=== PATIENT | male | born 1940 | race Caucasian/White ===

== ENCOUNTER 2017-03-01 08:43 | Observation (INO) | payer MEDICARE, OTHER ==
[~2017-03-01] VITALS: Ht 172.7 cm; Wt 67.6 kg
--- NOTE | 2017-03-01 09:05 | RAD ---
CT head without contrast History: .Right arm numbness, code stroke Comparison: None. Procedure: Axial images are obtained of the head from the skull base through the vertex without IV contrast. Findings: Mild bilateral periventricular white matter hypodensities likely chronic small vessel ischemic disease. The ventricles and sulci are normal for the patient's age. No mass-effect, intracranial mass, midline shift, hemorrhage or obvious acute infarction is identified. Basilar cisterns are patent. Bone windows demonstrate no significant calvarial abnormality. The visualized paranasal sinuses appear clear. Impression: 1. No acute intracranial process. Report was called to [facility] ER at time of dictation. PQRS Compliance Statement: One or more of the following individualized dose reduction techniques were utilized for this examination: 1. Automated exposure control 2. Adjustment of the mA and/or kV according to patient size 3. Use of iterative reconstruction technique
--- NOTE | 2017-03-01 09:26 | RAD ---
Examination: Single frontal view the chest History: History of right arm numbness, face numbness Comparison: None available Findings FINDINGS: The cardiac silhouette is unremarkable. The lungs are clear bilaterally. The costophrenic sulci are clear and well demarcated. IMPRESSION: No radiographic evidence of an acute cardiopulmonary process.
[2017-03-01 09:27] LABS: BASO # 0.1 x10^3/uL (0.0-0.2); BASO % 1 % (0-3); EOS # 0.5 x10^3/uL (0.0-0.7); EOS % 6 % (0-3); HEMATOCRIT 51.4 % (39.0-53.0); HEMOGLOBIN 17.9 g/dL (13.0-17.5); LYMPH % 22 % (24-48); MEAN CORPUSCULAR HEMOGLOBIN 32 pg (25-35); MEAN CORPUSCULAR HGB CONC 35 g/dL (31-37); MEAN CORPUSCULAR VOLUME 91 fL (79-100); MONO # 0.9 x10^3/uL (0.0-1.1); MONO % 10 % (0-9); NEUT # 5.7 x10^3uL (1.8-7.7); NEUT % 62 % (31-73); PLATELET COUNT 262 x10^3/uL (140-400); RED BLOOD COUNT 5.63 x10^6/uL (4.30-5.70); RED CELL DISTRIBUTION WIDTH 13.6 % (11.5-14.5); WHITE BLOOD COUNT 9.1 x10^3/uL (4.0-11.0)
[2017-03-01 09:29] LABS: ALBUMIN 3.9 g/dL (3.4-5.0); ALBUMIN/GLOBULIN RATIO 0.9 (1.0-1.7); C REACTIVE PROTEIN 4.4 mg/L (0-3.3); CALCIUM 9.3 mg/dL (8.5-10.1); CREATININE 0.9 mg/dL (0.7-1.3); GFR 82.3; POTASSIUM 3.9 mmol/L (3.5-5.1); TOTAL BILIRUBIN 0.5 mg/dL (0.2-1.0); TOTAL PROTEIN 8.1 g/dL (6.4-8.2)
--- NOTE | 2017-03-01 09:30 | PHYS DOC ---
General Chief Complaint: WEAKNESS/GENERALIZED Stated Complaint: POSSIBLE STROKE SYMPTOMS Time Seen by MD: 08:46 Source: patient Exam Limitations: no limitations Problems: History of Present Illness Initial Comments Pt is 76/M to ED for possible stroke. Pt states that he woke this am about 0600 and felt normal/well. Around 0630 or 0700 pt tried to read the newspaper but found that he could not remember one word to the next or really comprehend what he saw. He reread the same sentences and could not recall/understand them. He then tried to recall names of all his grandchildren in his head and could not think of one of their names. He said this is when he knew things were not right. He went to the restroom but had difficulty flipping the light switch on with his right hand due to RUE numbness/perceived weakness. Along with right arm weak/numb he also at this time felt right facial weakness/numbness but no droop noted in bathroom mirror. His woke shortly thereafter, she found pt sitting in his chair initially unable to find words or form sentences to speak with her. They initially planned to wait for a clinic to open but decided to come to ED. On ED arrival pt denies any focal weakness or GARCÍA, still with right arm/face dull ache/ tingling. No new or progressive symptoms. Pt denies any headache/cp/sob. 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 Timing/Duration: 1-3 hours Severity: severe Modifying Factors: worse with movement, improves with rest Associated Symptoms: weakness, other Allergies: Coded Allergies: No Known Drug Allergies (Unverified , 03/01/17) Past Medical History Medical History: other (COPD, HTN, GERD) Surgical History: noncontributory Social History Smoker: less than 1 pack/day Alcohol: none Drugs: none Review of Systems Constitutional: denies chills, denies diaphoresis, denies fever, malaise EENTM: denies eye pain, denies blurred vision, denies double vision, denies ear pain, denies ear discharge, denies nose pain, denies nose congestion, denies throat pain, denies mouth pain Respiratory: denies cough, denies shortness of breath, denies wheezing Cardiovascular: denies chest pain, denies palpitations, denies syncope Gastrointestinal: denies abdominal pain, denies diarrhea, denies nausea, denies vomiting Genitourinary: denies dysuria, denies frequency, denies hematuria Musculoskeletal: see HPI, denies back pain, denies joint swelling, denies neck pain Psychiatric/Neurological: see HPI, denies headache Physical Exam General Appearance: WD/WN, no apparent distress Eyes: bilateral eye normal inspection, bilateral eye PERRL, bilateral eye EOMI Ear, Nose, Throat: hearing grossly normal, normal ENT inspection, normal pharynx Neck: non-tender, supple Respiratory: normal breath sounds, no respiratory distress Cardiovascular: normal peripheral pulses, regular rate, rhythm Gastrointestinal: non tender, soft Back: no CVA tenderness, no vertebral tenderness Extremities: non-tender, normal inspection (2+ pitting LE edema) 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 PHYSICIAN: GAEL COLLINS DO REASON: cva PROCEDURE: CT CODE STROKE HEAD WO CT head without contrast History: .Right arm numbness, code stroke Comparison: None. Procedure: Axial images are obtained of the head from the skull base through the vertex without IV contrast. Findings: Mild bilateral periventricular white matter hypodensities likely chronic small vessel ischemic disease. The ventricles and sulci are normal for the patient's age. No mass-effect, intracranial mass, midline shift, hemorrhage or obvious acute infarction is identified. Basilar cisterns are patent. Bone windows demonstrate no significant calvarial abnormality. The visualized paranasal sinuses appear clear. Impression: 1. No acute intracranial process. Report was called to [facility] ER at time of dictation. PQRS Compliance Statement: One or more of the following individualized dose reduction techniques were utilized for this examination: 1. Automated exposure control 2. Adjustment of the mA and/or kV according to patient size 3. Use of iterative reconstruction technique DICTATED AND SIGNED BY: NOREEN NAVA MD DATE: 03/01/17 0859 CC: HEATHER EDWARDS; GAEL COLLINS DO ~ d-dimer 0.46, Na 128, UA 100glu 1022: I discussed pt with Dr Cabrales Neurology. He also feels pt TIA, recommends [facility] admission, lovenox dvt prophylaxis, ASA, echo/carotids/LE dopplers. Discussed with Dr Miner who accepts pt for admission. Departure Disposition: 09 ADMITTED INPATIENT Diagnosis: TIA, hyponatremia, tobaccoism, glucosuria Condition: STABLE GAEL COLLINS DO March 01, 2017 09:30
--- NOTE | 2017-03-01 09:32 | EKG ---
[address] [address] Test Date: 2017-03-01 Test Time: 09:00:10 Pat Name: RYAN KELLEY Department: Room: Gender: M Customer Success Intern: ANNI : 1940 Requested By: GAEL COLLINS Order Number: [id number] Reading MD: Navi Anne Measurements Intervals [place] Rate: 71 P: 60 MA: 150 QRS: 80 QRSD: 88 T: 77 QT: 372 QTc: 404 Interpretive Statements SINUS RHYTHM Electronically Signed On 03-03-2017 14:57:31 CDT by Navi Anne
[2017-03-01 10:08] LABS: AMORPHOUS SEDIMENT,UR PRESENT /HPF; BACTERIA,URINE 0 /HPF (0-FEW); BILIRUBIN,URINE NEG (NEG); CLARITY,URINE HAZY; COLOR,URINE STRAW; GLUCOSE,URINE 100 mg/dL (NEG); NITRITE,URINE NEG (NEG); RBC,URINE RARE /HPF (0-2); SQUAMOUS EPITHELIAL CELL,UR OCC /LPF; UROBILINOGEN,URINE 0.2 mg/dL (0.2 mg/dL); WBC,URINE RARE /HPF (0-4)
[2017-03-01 10:10] LABS: AMPHETAMINE/METHAMPHETAMINE NEG (NEG); BARBITURATES NEG (NEG); BENZODIAZEPINES NEG (NEG); CANNABINOIDS NEG (NEG); COCAINE NEG (NEG); METHADONE NEG (NEG); OPIATES NEG (NEG); PHENCYCLIDINE NEG (NEG)
[2017-03-01] MEDS ORDERED: ACETAMINOPHEN 325 MG TABLET PO PRN (11:15)
[2017-03-01] MEDS: IPRATRPIUM/ALBUTEROL 0.5/2.5MG 3 ML NEBU. NEB SCH ×3 (11:22→20:00)
[2017-03-01] MEDS ORDERED: IV NORMAL SALINE 1,000ML 1,000 ML IV SCH (11:30)
[2017-03-01] MEDS ORDERED: ONDANSETRON PF 4 MG/2 ML VIAL. IV PRN (11:30)
[2017-03-01 14:13] VITALS: BP 137/70
[2017-03-01] MEDS ORDERED: ENOXAPARIN 40 MG/0.4 ML DISP.SYRIN. SQ SCH (14:15)
[2017-03-01] MEDS ORDERED: AMLO10TA2 PO (14:32)
[2017-03-01] MEDS ORDERED: FAMO40TA4 PO (14:32)
[2017-03-01] MEDS ORDERED: ENAL20TA PO (14:32)
[2017-03-01] MEDS ORDERED: METO50TA10 PO (14:32)
[2017-03-01] MEDS: ASPIRIN 325 MG TABLET PO SCH (14:34)
--- NOTE | 2017-03-01 15:58 | PDOC1 ---
History of Present Illness Reason for Visit: Stroke History of Present Illness Pt had onset of confusion about 630 this morning. He says he couldn't find the right words to say what he wanted. Then, while he was shaving, the right arm and right face went numb. He was even unable to turn the doorknob. He denied GARCÍA, SOA, chest pain, dizziness, blurry vision, or any other symptoms. He had his take him to the ER, and by the time he arrived there, his symptoms had resolved. Total time was about 1 hour per pt and his . He reports never having had those symptoms before. He is a smoker, but his only hospitalization was many years ago when "they thought I had a heart attack Chief Complaint: WEAKNESS/GENERALIZED Allergies: Coded Allergies: No Known Drug Allergies (Unverified , 03/01/17) Past Medical History Cardiac: HTN Pulmonary: COPD Past Surgical History: No pertinent history Family History: No pertinent hx Past Social History Smoke: <1 pack per day Alcohol: none Drugs: None Lives: with Family Review of Systems Review Of Systems Fourteen system , review of systems has been reviewed. See HPI for pertinent positives and negative responses, other samuel all other systems are negative, non pertinent or non contributory Allergies: Coded Allergies: No Known Drug Allergies (Unverified , 03/01/17) Medications Current Medications Ondansetron HCl (Zofran) 4 mg PRN Q4HRS PRN IV NAUSEA/VOMITING; Start 03/01/17 at 11:30; Stop 03/02/17 at 11:29 Sodium Chloride 1,000 ml @ 120 mls/hr Q8H20M IV Last administered on 12:47; Start 03/01/17 at 11:30; Stop 03/01/17 at 15:13; Status DC Acetaminophen (Tylenol) 650 mg PRN Q4HRS PRN PO FEVER; Start 03/01/17 at 11:15 ; Stop 03/02/17 at 11:14 Albuterol/ Ipratropium (Duoneb) 3 ml RTQID NEB Last administered on 03/01/17 11:22; Start 03/01/17 at 12:00; Stop 03/02/17 at 11:59 Enoxaparin Sodium (Lovenox) 40 mg Q24H SQ ; Start 03/01/17 at 14:15; Stop at 15:13; Status DC Aspirin (Jack Aspirin) 325 mg DAILYWBKFT PO Last administered on 03/01/17t 14: 34; Start 03/01/17 at 13:45 Nicotine (Nicoderm Cq 14mg) 1 patch DAILY TD ; Start 03/02/17 at 09:00; Status UNV Active Scripts Active Reported Famotidine 40 Mg Tablet 1 Tab PO DAILYWSUP Enalapril Maleate 20 Mg Tablet 1 Tab PO DAILY Amlodipine Besylate 10 Mg Tablet 1 Tab PO DAILY Metoprolol Succinate ( Xl ) (Metoprolol Succinate) 50 Mg Tab.er.24h 1 Tab PO HS Exam Vital Signs Vital Signs Date Time Temp Pulse Resp B/P (MAP) Pulse Ox O2 Delivery O2 Flow Rate FiO2 03/01/17 14:13 97.4 84 22 137/70 (92) 94 Room Air General Appearance: Alert, Oriented X3, Cooperative, No acute distress HEENT: Atraumatic, PERRLA, EOMI, Mucous membr. moist/pink, Other (Neck supple, full ROM, no JVD, no LAD) Respiratory: Clear to auscultation, Normal air movement Abdominal: Normal bowel sounds, Soft, No tenderness, No hepatospenomegaly, No masses Extremities: No edema, Normal pulses, No tenderness/swelling Skin: No rashes, No breakdown Neuro: Normal speech, Strength at 5/5 X4 ext, Normal tone, Sensation intact, Cranial nerves 3-12 NL, Reflexes 2+ Psych/Mental Status: Mental status NL, Mood NL Assessment/Plan Assessment/Plan 1. TIA vs CVA: Sx's resolved in 1 hour. Cont neurochecks. Carotids and echo. Neuro consult. Telemetry. Aspirin daily. Consider d/c in AM if tests negative and no recurrence of symptoms. Could consider MRI/MRA as outpatient. 2. COPD: Stable, pt advised to stop smoking. 3. Tobaccoism: Nicotine patch placed. 4. HTN: Stable. 5. DVT proph: Pt low-risk, possibly 24 hour stay. COnsider Lovenox if staying longer. COURSE Allergies Coded Allergies Type Severity Reaction Last Updated Verified No Known Drug Allergies 03/01/17 No Laboratory Tests Test 03/01/17 08:55 03/01/17 09:45 White Blood Count 9.1 x10^3/uL (4.0-11.0) Red Blood Count 5.63 x10^6/uL (4.30-5.70) Hemoglobin 17.9 g/dL (13.0-17.5) Hematocrit 51.4 % (39.0-53.0) Mean Corpuscular Volume 91 fL (79-100) Mean Corpuscular Hemoglobin 32 pg (25-35) Mean Corpuscular Hemoglobin Concent 35 g/dL (31-37) Red Cell Distribution Width 13.6 % (11.5-14.5) Platelet Count 262 x10^3/uL (140-400) Neutrophils (%) (Auto) 62 % (31-73) Lymphocytes (%) (Auto) 22 % (24-48) Monocytes (%) (Auto) 10 % (0-9) Eosinophils (%) (Auto) 6 % (0-3) Basophils (%) (Auto) 1 % (0-3) Neutrophils # (Auto) 5.7 x10^3uL (1.8-7.7) Lymphocytes # (Auto) 2.0 x10^3/uL (1.0-4.8) Monocytes # (Auto) 0.9 x10^3/uL (0.0-1.1) Eosinophils # (Auto) 0.5 x10^3/uL (0.0-0.7) Basophils # (Auto) 0.1 x10^3/uL (0.0-0.2) Prothrombin Time 10.2 SEC (9.4-11.4) Prothromb Time International Ratio 1.0 (0.9-1.1) Activated Partial Thromboplast Time 28 SEC (23-33) D-Dimer (Connie) 0.46 mg/L (0.00-0.50) Sodium Level 128 mmol/L (136-145) Potassium Level 3.9 mmol/L (3.5-5.1) Chloride Level 89 mmol/L (98-107) Carbon Dioxide Level 31 mmol/L (21-32) Anion Gap 8 (6-14) Blood Urea Nitrogen 13 mg/dL (8-26) Creatinine 0.9 mg/dL (0.7-1.3) Estimated GFR (Cockcroft-Gault) 82.3 BUN/Creatinine Ratio 14 (6-20) Glucose Level 107 mg/dL (70-99) Lactic Acid Level 0.9 mmol/L (0.4-2.0) Calcium Level 9.3 mg/dL (8.5-10.1) Total Bilirubin 0.5 mg/dL (0.2-1.0) Aspartate Amino Transf (AST/SGOT) 25 U/L (15-37) Alanine Aminotransferase (ALT/SGPT) 27 U/L (16-63) Alkaline Phosphatase 95 U/L (46-116) Troponin I Quantitative < 0.017 ng/mL (0-0.055) C-Reactive Protein 4.4 mg/L (0-3.3) Total Protein 8.1 g/dL (6.4-8.2) Albumin 3.9 g/dL (3.4-5.0) Albumin/Globulin Ratio 0.9 (1.0-1.7) Urine Collection Type Unknown Urine Color Straw Urine Clarity Hazy Urine pH 7.5 Urine Specific [place] 1.020 Urine Protein >100 mg/dl (NEG-TRACE) Urine Glucose (UA) 100 mg/dL (NEG) Urine Ketones (Stick) Neg mg/dL (NEG) Urine Blood Neg (NEG) Urine Nitrite Neg (NEG) Urine Bilirubin Neg (NEG) Urine Urobilinogen Dipstick 0.2 mg/dL (0.2 mg/dL) Urine Leukocyte Esterase Neg (NEG) Urine RBC Rare /HPF (0-2) Urine WBC Rare /HPF (0-4) Urine Squamous Epithelial Cells Occ /LPF Urine Amorphous Sediment Present /HPF Urine Bacteria 0 /HPF (0-FEW) Urine Mucus Slight /LPF Urine Opiates Screen Neg (NEG) Urine Methadone Screen Neg (NEG) Urine Barbiturates Neg (NEG) Urine Phencyclidine Screen Neg (NEG) Urine Amphetamine/Methamphetamine Neg (NEG) Urine Benzodiazepines Screen Neg (NEG) Urine Cocaine Screen Neg (NEG) Urine Cannabinoids Screen Neg (NEG) Urine Ethyl Alcohol Neg (NEG) Current Medications Medications (Trade) Dose Ordered Sig/Gamaliel Route PRN Reason Start Time Stop Time Status Last Admin Dose Admin Ondansetron HCl (Zofran) 4 mg PRN Q4HRS PRN IV NAUSEA/VOMITING 03/01/17 11:30 03/02/17 11:29 Sodium Chloride 1,000 ml @ 120 mls/hr Q8H20M IV 03/01/17 11:30 03/01/17 15:13 DC 03/01/17 12:47 Acetaminophen (Tylenol) 650 mg PRN Q4HRS PRN PO FEVER 03/01/17 11:15 03/02/17 11:14 Albuterol/ Ipratropium (Duoneb) 3 ml RTQID NEB 03/01/17 12:00 03/02/17 11:59 03/01/17 11:22 Enoxaparin Sodium (Lovenox) 40 mg Q24H SQ 03/01/17 14:15 03/01/17 15:13 DC Aspirin (Jack Aspirin) 325 mg DAILYWBKFT PO 03/01/17 13:45 03/01/17 14:34 Nicotine (Nicoderm Cq 14mg) 1 patch DAILY TD 03/02/17 09:00 UNV Vital Signs Date Time Temp Pulse Resp B/P (MAP) Pulse Ox O2 Delivery O2 Flow Rate FiO2 03/01/17 14:13 97.4 84 22 137/70 (92) [address] head: No acute intracranial abnormality. RIKI TATE MD March 01, 2017 15:58
[2017-03-01] MEDS: FAMOTIDINE 20 MG TABLET PO SCH (16:52)
[2017-03-01] MEDS: NICOTINE 14MG PATCH. TD SCH (17:17)
--- NOTE | 2017-03-01 17:22 | ACF ---
Admission Criteria Forms TRANSIENT ISCHEMIC ATTACK (TIA) Clinical Indications for Admission to Inpatient Care (Place 'X' for any and all applicable criteria): Admission is indicated for ANY ONE of the following(1)(2)(3)(4)(5): [ ]I. Immediate inpatient procedure is needed (eg, endarterectomy). [X]II. Inpatient admission required rather than observation care (Also use Transient Ischemic Attack (TIA): Observation Care Criteria as appropriate) because of ANY ONE of the following: [ ]a) Focal neurologic signs or symptoms persist or recurring [ ]b) Cardiac arrhythmias of immediate concern [ ]c) Clinically significant cardiac disorder identified that requires inpatient care (eg, severe valvular disease, atrial myxoma, cardiomyopathy) [ ]d) Hypertension requiring inpatient treatment [ ]e) Parenteral anticoagulation required (eg, alternative forms of anticoagulation not appropriate or not feasible) as indicated by ALL of the following(13): [ ]i) Temporary subtherapeutic anticoagulation unacceptable because of high risk of short-term venous or arterial thromboembolism due to ANY ONE of the following(14)(15)(16): [ ]1) Atrial fibrillation suspected as etiology of TIA(17)(18)(19)(20)(21) [ ]2) Venous thromboembolism within past 12 months [ ]3) Underlying malignancy [ ]4) Patient with mechanical cardiac valve(22)( 23) [ ]5) Underlying hypercoagulable state (eg, protein C or protein S deficiency antithrombin deficiency, antiphospholipid antibodies) [ ]6) Patient at temporary high risk of thromboembolism (eg, status post orthopedic surgery) [ ]ii) Contraindications to outpatient use of "bridging" agent or alternative oral anticoagulant[B] as indicated by ALL of the following: [ ]1) Contraindication to outpatient use of low- molecular-weight heparin as "bridging" agent as indicated by ANY ONE of the following(15): [ ]A. Documented current or history of heparin-induced thrombocytopenia(24) [ ]B. Severe thrombocytopenia (eg, platelet count less than 50,000/mm3 (41e176/L) [ ]C. Documented allergy to heparin, low- molecular-weight heparin, or pork products [ ]D. Renal failure (creatinine clearance less than 30 mL/min/1.73m2 (0.50mL/sec/1.73m2) or on dialysis) [ ]E. Inability to manage self-injection ( eg, by patient, caregiver, or visiting nurse) [ ]2) Contraindication to outpatient use of fondaparinux as "bridging" agent as indicated by ANY ONE of the following(25)(26 )(27)(28): [ ]A. Severe thrombocytopenia (eg, platelet count less than 50,000/mm3 (50 x109/L)) [ ]B.Hypersensitivity to fondaparinux, related drugs, or product components [ ]C.Renal failure (creatinine clearance less than 30 mL/min/1.73m2 (0.50mL/sec/1.73m2) or on dialysis) [ ]D.Inability to manage self-injection ( eg, by patient, caregiver, or visiting nurse [ ]3. Oral direct thrombin inhibitor (eg, dabigatran) or oral coagulation factor Xa inhibitor (eg, rivaroxaban, apixaban) not appropriate as oral anticoagulation (eg, indication not appropriate) or contraindicated (eg, hypersensitivity, creatinine clearance less than 15 mL/min/1.73m2 ( 0.25 mL/sec/1.73m2) or on dialysis). [ ]f) Continuous IV infusion of anticoagulant, platelet inhibitor, vasoactive or antiarrhythmia(18)(19) [X]g) Other condition, treatment, or monitoring requiring inpatient admission [ ]III. Contraindications and/or Inappropriate clinical situations for Observational Care in patients with Transient Ischemic Attack (TIA), when ANY ONE of the following is required: [ ]a) Patient with persistent or severe neurological deficit 24 [ ]b) Patient with acute CVA or other identified pathology should be admitted to inpatient for further care 25 [ ]IV. General contraindications and/or Inappropriate clinical situations for Observational Care in patients with Transient Ischemic Attack (TIA), when ANY ONE of the following is required: [ ]a) Prediction of prolongation of LOS based on ANY ONE of the following may be considered as a contraindication for observational care 2, 3, 4, 5, 6, 7, 8, 9, 10, 11 [ ]i) Age > 65 yrs. [ ]ii) Patient arriving by ambulance [ ]iii) Patient with high acuity [ ]iv) Patient requiring vital sign monitoring [ ]v) Patient on IV medication [ ]b) Systolic blood pressures 180mmHg 3,12 [ ]c) Patient with altered mental status including delirium and other alteration of consciousness, (3) [ ]d) Patient whose discharge disposition will be to a longterm home or rehabilitation home should not be managed in Emergency Department Observation Unit. CMS rule requires 3 days hospital stay before such placement.3,13 [ ]e) Patient with failure to thrive due to broad array of etiologies 3,16,17 [ ]f) Inability to ambulate 3,14 Extended stay beyond goal length of stay may be needed for(4)(30)(32): [ ]a) Parenteral anticoagulation required [ ]b) Dangerous arrhythmia [ ]c) Cardiac valvular disorder, atrial myxoma, cardiomyopathy [ ]d) Uncontrolled severe hypertension [ ]e) Severe carotid stenosis [ ]f) Active comorbidities (eg, heart failure) [ ]g) Extracranial vertebrobasilar disease(29) [ ]h) Clinical evolution of TIA into cerebrovascular accident (stroke) The original [employer] content created by [employer] has been revised. The portions of thecontent which have been revised are identified through the use of italic text or in bold, and [email or web address] has neither reviewed nor approved the modified material. All other unmodified content is copyright [email or web address]. Please see references footnoted in the original [employer] edition 2016 Admission Criteria Met?: Yes GUZMAN MIRANDA March 01, 2017 17:22
[2017-03-01 19:18] VITALS: BP 136/72
[2017-03-01] MEDS ORDERED: METOPROLOL SUCC 24HR ER 50 MG TAB.ER.24H. PO SCH (21:00)
[2017-03-02] MEDS: IPRATRPIUM/ALBUTEROL 0.5/2.5MG 3 ML NEBU. NEB SCH (06:05)
[2017-03-02 06:55] LABS: BASO # 0.1 x10^3/uL (0.0-0.2); BASO % 1 % (0-3); EOS # 0.5 x10^3/uL (0.0-0.7); EOS % 6 % (0-3); HEMATOCRIT 47.4 % (39.0-53.0); HEMOGLOBIN 16.2 g/dL (13.0-17.5); LYMPH # 2.3 x10^3/uL (1.0-4.8); LYMPH % 24 % (24-48); MEAN CORPUSCULAR HEMOGLOBIN 31 pg (25-35); MEAN CORPUSCULAR HGB CONC 34 g/dL (31-37); MEAN CORPUSCULAR VOLUME 91 fL (79-100); MONO % 11 % (0-9); NEUT # 5.4 x10^3uL (1.8-7.7); NEUT % 58 % (31-73); PLATELET COUNT 246 x10^3/uL (140-400); RED BLOOD COUNT 5.19 x10^6/uL (4.30-5.70); RED CELL DISTRIBUTION WIDTH 13.5 % (11.5-14.5); WHITE BLOOD COUNT 9.3 x10^3/uL (4.0-11.0)
[2017-03-02 07:00] VITALS: BP 135/71
[2017-03-02 07:29] LABS: CALCIUM 8.8 mg/dL (8.5-10.1); CREATININE 0.8 mg/dL (0.7-1.3); GFR 94.2; POTASSIUM 4.3 mmol/L (3.5-5.1)
[2017-03-02] MEDS: ASPIRIN 325 MG TABLET PO SCH (07:56)
[2017-03-02] MEDS: LISINOPRIL 20 MG TABLET PO SCH ×2 (08:03→08:08)
[2017-03-02] MEDS: NICOTINE 14MG PATCH. TD SCH (09:00)
[2017-03-02] MEDS ORDERED: amLODIPine BESYLATE 10 MG TABLET PO SCH (09:00)
--- NOTE | 2017-03-02 09:11 | RAD ---
Examination: Ultrasound bilateral lower extremity venous duplex History: History of transient ischemic attack Comparison: None available Technique: Grayscale, color Doppler 2-D, spectral waveform analysis of the bilateral lower extremity venous system were performed Findings: The visualized common femoral vein, superficial femoral vein, popliteal vein demonstrate normal compression and augmentation of flow. The visualized calf veins are patent. Impression: No evidence of deep venous thrombosis identified in the visualized bilateral lower extremity venous system.
--- NOTE | 2017-03-02 09:13 | RAD ---
Exam performed: Carotid Doppler. Clinical indication: Transient ischemic attack Comparison: None Technique: Grayscale, color Doppler 2-D, spectral waveform analysis of the bilateral carotid arterial system was performed.. Findings: There is mild atherosclerotic calcification within both carotid bulbs extending into the internal carotid artery bilaterally. Doppler interrogation reveals normal waveforms and velocities as follows . Peak systolic velocity within the right common carotid artery is 60 cm/sec whereas on the left is 50 cm/sec . The peak systolic velocity within the right ICA is 45 cm/sec whereas on the left is 51 cm/sec. The ICA to CCA ratio on the right ranges from 0.8whereas on the left ranges from 1.0. There is antegrade flow in left vertebral artery. The right vertebral artery could not be clearly identified. Impression: 1.Mild plaquing involving both carotid systems without any flow-limiting stenosis. The right vertebral artery is not clearly identified. Note: Stenosis calculations for CT, MR and conventional angiography are based upon determination of the distal ICA diameter in accordance with the NASCET methodology. Stenosis calculations for doppler studies are derived from validated velocity criteria which are known to correlate with NASCET methodology of determining stenosis.
--- NOTE | 2017-03-02 09:19 | CONS ---
DATE OF CONSULTATION: 03/01/2017 REASON FOR CONSULTATION: Rule out TIA versus stroke. HISTORY OF PRESENT ILLNESS: This is a 76-year-old very pleasant male who was admitted to Emergency Room after he presented with chief complaints of new onset of numbness and paresthesia of the right face and upper arm along with brief confusion. According to the patient, he woke up this morning at 3:30 and he was confused when he started reading his paper as usual. He could not recall what he read and he did not find the right word he wanted to say. The confusion lasted approximately 20 minutes and then when he was shaving, his right face and right upper extremity felt numb. The numbness lasted approximately one hour. His symptoms resolved when he arrived to the Emergency Room. The patient was not confused and he did not have any neurological deficit. On arrival, his blood pressure was 155/79. His neurological examination was unremarkable. Initial nonenhanced head CT scan revealed no acute intracranial process, but consistent with chronic small vessel ischemic changes. Currently, the patient denies headaches, visual disturbances. However, he was born with left lazy eye and he said his depth perception using the left eye has not been normal since. He denies diplopia, dysphagia, dysarthria, chest pain, shortness of breath, palpitations or dizziness. PAST MEDICAL HISTORY: Significant for COPD, possible myocardial infarction, however his complete cardiac workup including echocardiogram and EKGs with treadmill test were unremarkable. History of hypertension. Chronic history of hyponatremia. The patient was told by his quality control industrial engineer that he always have slight hyponatremia of unknown etiology. GERD history of hiatal hernia. PAST SURGICAL HISTORY: None. FAMILY HISTORY: Noncontributory. SOCIAL HISTORY: The patient is . He used to be a heavy smoker and smoked 2 packs of cigarettes daily, but currently he smokes 3/4 quarter of 1 pack daily. He denies alcohol drinking or illicit drug use. CURRENT MEDICATIONS: Lisinopril 40 mg p.o. daily, amlodipine 10 mg daily, metoprolol 50 mg at bedtime, Pepcid 40 mg daily, nicotine patch 14 mg daily, aspirin 325 mg daily, Zofran 4 mg q.4h. p.r.n. for vomiting and Tylenol p.r.n. for pain. REVIEW OF SYSTEMS: A 10-point review of system was performed as mentioned above in history of present illness, otherwise unremarkable. PHYSICAL EXAMINATION: GENERAL: Well-developed, well-nourished white male, not in acute distress. He weighs 149 pounds. VITAL SIGNS: Blood pressure 136/72, respiratory rate 18, pulse is 69 and regular, temperature 98.2, oxygen saturation 94% on room air. HEENT: Normocephalic, atraumatic, otherwise unremarkable. NECK: Supple. Negative for carotid bruit, lymphadenopathy or thyromegaly. LUNGS: Clear to A and P. CARDIOVASCULAR: Regular rate and rhythm, normal S1, S2. There is no S3, S4 or murmur. ABDOMEN: Soft. Bowel sounds positive. EXTREMITIES: Negative for cyanosis, clubbing or pitting edema. NEUROLOGICAL EXAM: Mental Status: The patient is alert and oriented x 3. Speech is fluent. There is no language dysfunction. Memory, judgment, and abstract thinking are normal. The patient denies hallucination or delusion. CRANIAL NERVES: Visual lott are full. The pupils are reactive to light and accommodation. The extraocular movements are abnormal of the left eye because of "history of lazy eye" on the left. There is no nystagmus. There is no facial motor or sensory deficit. Hearing is intact bilaterally. The palate is elevated symmetrically. Sternocleidomastoid muscles are powerful bilaterally. The patient shrugs his shoulders symmetrically and protrudes his tongue in the midline without fasciculation or atrophy. The strength was 5/5 throughout. The patient apparently had mild postural and kinetic tremors of both hands. Sensory examination revealed normal pinprick, light touch, vibratory and position senses. Deep tendon reflexes were symmetric and active without pathology responses. Gait and coordination are normal. LABORATORY DATA: CBC revealed white blood cells of 9.1 thousand, hemoglobin 17.9 , hematocrit 41.4, platelet count 262,000. Chemistry revealed sodium of 138, potassium 3.9, chloride 98, CO2 31. BUN 13, creatinine 0.9. Glucose is 107. Liver enzymes are normal. Troponin level less than 0.017. Urinalysis, no evidence of urinary tract infection. Urine drug screen is negative. DIAGNOSTIC DATA: Nonenhanced head CT scan as described in the history of present illness consistent with chronic small vessel ischemic changes, but no acute intracranial process. Chest x-ray revealed no acute cardiopulmonary process. IMPRESSION: 1.Probably transient ischemic attack, no recurrence. 2.Multiple medical problems include hypertension, chronic obstructive pulmonary disease, history of coronary artery disease with negative cardiac workup, gastroesophageal reflux disease, tobaccoism. RECOMMENDATIONS: 1. Smoking cessation. 2. Await for carotid Doppler study and echocardiogram, fasting lipid profile. 3. Aspirin 325 mg p.o. daily. We will defer MRI and MRA to be done on outpatient basis. M Maxx CHUA MD DR: LELIA/lyn JOB#: [id number] / [id number]
[2017-03-02] MEDS: FAMOTIDINE 20 MG TABLET PO SCH (10:29)
[2017-03-02 11:43] VITALS: BP 157/63
[2017-03-02] MEDS ORDERED: ASPI325T8 PO (13:22)
--- NOTE | 2017-03-02 21:42 | DS ---
DATE OF DISCHARGE: 03/02/2017 HOSPITAL COURSE: The patient is 76-year-old male patient who was admitted through the Emergency Room with a chief complaint of new onset of numbness and paresthesia in his right face and upper arm along with brief confusion. According to him, he woke up yesterday morning at 3:30 and he was confused when he started reading his paper as usual. He could not recall what he read and he did not find the right words he wanted to say. The confusion lasted approximately 20 minutes and then when he was shaving his right face and right upper extremity felt numb. The numbness lasted approximately one hour. His symptoms resolved when he arrived to the Emergency Room. The patient was not confused and he did not have neurological deficit and on arrival, his blood pressure was 155/79. He has had extensive investigation ____ head CT scan that revealed no acute intracranial process but consistent with chronic small vessel ischemic changes. He did have also bilateral carotid Doppler ultrasound, which basically showed mild plaquing involving both carotid systems without any flow limiting stenosis. The right vertebral artery is not clearly identified. As his D-dimer was high, he also underwent venous Doppler ultrasound of both lower extremities with no evidence of deep venous thrombosis identified in the visualized bilateral lower extremity venous systems. As the patient remained hemodynamically stable, afebrile with no recurrence of any neurological deficit, he did very well with the physical therapist and a decision was made to discharge him home to continue with his current medications and we added aspirin 325 mg once a day and obviously he needs to follow up with Dr. Cabrales in 2 weeks' time as he is planning to arrange for him to have an MRI and MRA as an outpatient. PHYSICAL EXAMINATION: GENERAL: When I saw him this afternoon, he looked well and was clearly in no apparent respiratory distress, was somewhat cachectic, but no jaundice, cyanosis, lymphadenopathy or thyromegaly. No jugular venous distension. No limb edema. VITAL SIGNS: His heart rate was 71, blood pressure 157/63, temperature was 97.7, respiratory rate 20 and oxygen saturation was 95%. HEAD, EYES, EARS, NOSE AND THROAT: Showed normocephalic, atraumatic. NECK: Supple. HEART: Showed normal first and second heart sounds with no gallop, rub or murmur. CHEST: Clear to auscultation. No crepitation or rhonchi. ABDOMEN: Scaphoid, soft, nontender. NEUROLOGIC: He is awake, alert, responding appropriately. Cranial nerves are intact. He moves extremities without difficulty. He ambulates without assistance or assistive devices. LABORATORY DATA: His lab work this morning showed a white cell count of 9300, hemoglobin 16, hematocrit 47, MCV 91 and platelet count 246,000 with normal manual differential. His chemistry showed a serum sodium 133, potassium 4.3, chloride 96, bicarbonate 31, anion gap of 6, BUN 17, creatinine 0.8, estimated GFR was 94 mL per minute. His glucose was 91, calcium was 8.8. His serum triglycerides were 97, total cholesterol 172, LDL cholesterol was 73, VLDL was 19 and HDL cholesterol was ____. The cholesterol to HDL cholesterol ratio was 2. DISCHARGE MEDICATIONS: The patient will be discharged home to continue on aspirin 325 mg once a day, amlodipine besylate 10 mg once a day, enalapril 20 mg once a day, famotidine 40 mg once a day and metoprolol succinate or Toprol-XL 50 mg once a day. FINAL DISCHARGE DIAGNOSES: 1. Transient ischemic attack. 2. Hypertension. 3. Chronic obstructive pulmonary disease. 4. Gastroesophageal reflux disease. 5. History of coronary artery disease with negative cardiac workup. 6. Tobaccoism. The patient was advised to quit smoking, started on aspirin and MRI and MRA will be done as an outpatient after follows with Dr. Cabrales. JIN LOFTON MD DR: CECIL/lyn JOB#: [id number] / [id number]
--- NOTE | 2017-03-02 23:50 | PN ---
DATE: 03/02/2017 SUBJECTIVE: The patient denies any new medical or neurological complaints. He denies chest pain, shortness of breath, palpitation, dysarthria, dysphagia, headaches or dizziness. OBJECTIVE: GENERAL: Well-developed, well-nourished white male, not in acute distress. VITAL SIGNS: Blood pressure 135/71, respiratory rate 18, pulse 66, oxygen saturation 95% on room air and afebrile. HEENT: Normocephalic, atraumatic, otherwise unremarkable. NECK: Supple. Negative for carotid bruit, lymphadenopathy or thyromegaly. LUNGS: Clear to A and P. CARDIOVASCULAR: Regular rate and rhythm, normal S1, S2. There is no S3, S4 or murmur. ABDOMEN: Soft. Bowel sounds positive. EXTREMITIES: Negative for cyanosis, clubbing or pitting edema. NEUROLOGIC: Normal mental status and intact cranial nerves except for the lazy left eye since . No focal motor or sensory deficit. Deep tendon reflexes are symmetric and active without pathology responses. Gait and coordination are normal. DIAGNOSTIC DATA: Carotid Doppler study revealed mild plaques. There is no significant arterial stenosis. LABORATORY DATA: CBC revealed white blood cells of 9.3 thousand, hemoglobin 16.2, hematocrit 47.4, platelet count 246,000. Chemistry revealed sodium of 133, potassium 4.3, chloride 96, CO2 of 31. BUN 17, creatinine 0.8, glucose 91, calcium 8.8. Fasting lipid profile is pending. IMPRESSION: 1. Possible transient ischemic attack, no recurrence with a normal neurologic examination. 2. Hypertension, COPD and tobaccoism. RECOMMENDATION: 1. Smoking cessation. 2. Continue with current management initiated with Dr. Miner. 3. Coated aspirin 325 mg p.o. daily. 4. Follow up in Neurology Clinic after 2 weeks from discharge. If the patient has recurrent symptoms, we will obtain MRA and brain MRI on an outpatient basis. M Maxx CHUA MD DR: LELIA/lyn JOB#: [id number] / [id number]
--- NOTE | 2017-03-03 08:19 | CARD ---
APPROVED REPORT EXAM: Two-dimensional and M-mode echocardiogram with Doppler and color Doppler. Other Information Quality : Technically Limited Technically limited study due to smoking. INDICATION CVA/TIA 2D DIMENSIONS Left Atrium(2D)2.4 (1.6-4.0cm)IVSd1.0 (0.7-1.1cm) Aortic Root(2D)2.5 (2.0-3.7cm)LVDd3.6 (3.9-5.9cm) LVOT Diameter1.9 (1.8-2.4cm)PWd1.0 (0.7-1.1cm) LVDs2.7 (2.5-4.0cm)FS (%) 30.0 % SV28.6 mlLVEF(%)60.0 (>50%) Aortic Valve AoV Peak Esteban.127.1cm/Zuri Peak GR.6.5mmHg LVOT Peak Esteban.98.2cm/sAVA (VMAX)2.13cm2 Mitral Valve MV E Lyurpidk11.4cm/sMV DECEL [id number] MV A Mhvhpdvz488.7cm/sE/A Ratio0.7 LEFT VENTRICLE The left ventricle is normal size. There is normal left ventricular wall thickness. The left ventricu lar systolic function is normal and the ejection fraction is within normal range. The Ejection Fracti on is 60-65%. There is normal LV segmental wall motion. Transmitral Doppler flow pattern is Grade I-a bnormal relaxation pattern. RIGHT VENTRICLE The right ventricle is normal size. The right ventricular systolic function is normal. ATRIA The left atrium size is normal. The right atrium size is normal. The interatrial septum is intact wit h no evidence for an atrial septal defect or patent foramen ovale as noted on 2-D or Doppler imaging. AORTIC VALVE The aortic valve is not well visualized. Doppler and Color Flow revealed no significant aortic regurg itation. There is no significant aortic valvular stenosis. MITRAL VALVE The mitral valve is normal in structure and function. There is no evidence of mitral valve prolapse. There is no mitral valve stenosis. Doppler and Color Flow revealed no mitral valve regurgitation note d. TRICUSPID VALVE The tricuspid valve is normal in structure and function. Doppler and Color Flow revealed no tricuspid valve regurgitation noted. There is no tricuspid valve stenosis. PULMONIC VALVE The pulmonic valve is not well visualized. Doppler and Color Flow revealed no pulmonic valvular regur gitation. There is no pulmonic valvular stenosis. GREAT VESSELS The aortic root is normal in size. The ascending aorta is not well seen. The IVC is normal in size an d collapses >50% with inspiration. PERICARDIAL EFFUSION There is no evidence of significant pericardial effusion. Critical Notification Critical Value: No <Conclusion> The left ventricular systolic function is normal and the ejection fraction is within normal range. Th e Ejection Fraction is 60-65%. There is normal LV segmental wall motion. Technically difficult study
== END 2017-03-02 14:00 | disposition home or self-care (01) ==
LOC: ER 08:43 → 1 SOUTH 11:14 → INTOOBSV 11:14
PROVIDERS: ADMIT Family Medicine; ATTEND Family Medicine
DX: G45.9 Transient cerebral ischemic attack, unspecified (principal); I10 Essential (primary) hypertension; I25.2 Old myocardial infarction; J44.9 Chronic obstructive pulmonary disease, unspecified; K21.9 Gastro-esophageal reflux disease without esophagitis; F17.210 Nicotine dependence, cigarettes, uncomplicated; Z79.82 Long term (current) use of aspirin
CPT/HCPCS: 36415; 70450; 71010; 80048; 80053; 80061; 81001; 83605; 84484; 85027; 85379; 85610; 85730; 86140; 93005; 93306; 93880; 93970; 94640; 96360; 96361; 97161; 99285; G0378; G0481; J7620; G0379; J7030

== ENCOUNTER 2017-11-07 10:25 | Inpatient (IN) | payer OTHER ==
[~2017-11-07] VITALS: Ht 172.7 cm; Wt 68.7 kg
[~2017-11-07 10:25] MED LIST: AMLO10TA2 PO; ASPI325T8 PO; ENAL20TA PO; FAMO40TA4 PO; METO50TA29 PO
[2017-11-07] MEDS ORDERED: ATROPINE SULFATE 1 MG VIAL ONE (11:16)
[2017-11-07 11:27] VITALS: BP 113/54
[2017-11-07 11:34] LABS: BASO % 0 % (0-3); EOS # 0.2 x10^3/uL (0.0-0.7); EOS % 2 % (0-3); HEMATOCRIT 45.5 % (39.0-53.0); HEMOGLOBIN 15.5 g/dL (13.0-17.5); LYMPH # 1.1 x10^3/uL (1.0-4.8); LYMPH % 13 % (24-48); MEAN CORPUSCULAR HEMOGLOBIN 31 pg (25-35); MEAN CORPUSCULAR HGB CONC 34 g/dL (31-37); MEAN CORPUSCULAR VOLUME 91 fL (79-100); MONO # 0.6 x10^3/uL (0.0-1.1); MONO % 6 % (0-9); NEUT % 79 % (31-73); PLATELET COUNT 116 x10^3/uL (140-400); RED CELL DISTRIBUTION WIDTH 14.7 % (11.5-14.5); WHITE BLOOD COUNT 8.8 x10^3/uL (4.0-11.0)
[2017-11-07 11:42] LABS: ALBUMIN 2.8 g/dL (3.4-5.0); ALBUMIN/GLOBULIN RATIO 0.8 (1.0-1.7); CALCIUM 8.9 mg/dL (8.5-10.1); CREATININE 0.7 mg/dL (0.7-1.3); GFR 109.6; POTASSIUM 4.7 mmol/L (3.5-5.1); TOTAL BILIRUBIN 0.2 mg/dL (0.2-1.0); TOTAL PROTEIN 6.2 g/dL (6.4-8.2)
[2017-11-07] MEDS ORDERED: CIME200T8 PO (12:04)
[2017-11-07] MEDS ORDERED: BENA20TA2 PO (12:04)
[2017-11-07] MEDS ORDERED: ASPI325T8 PO (12:04)
[2017-11-07] MEDS ORDERED: CALCIUM CARBONATE 500 MG TAB.CHEW PO PRN (13:45)
[2017-11-07 13:58] VITALS: BP 98/53
[2017-11-07] MEDS ORDERED: GLUCAGON,HUMAN RECOMBINANT 1 MG KIT. IV ONE (14:45)
[2017-11-07 14:48] VITALS: BP 98/53
[2017-11-07 15:22] VITALS: BP 96/60
--- NOTE | 2017-11-07 15:57 | PDOC2 ---
CONSULT Date of Admission DATE: 11/07/17 TIME: 15:24 Reason for Consult: bradycardia, hypotension History of Present Illness Mr Neri is a 77 year old male who presented to the PCP today with complaints of balance issues. He was noted to be hypoxic, hypotensive and bradycardic so sent to the hospital for admission. He reports more shortness of breath over the last 3-4 days, and difficulty with balance. His reports he has had no appetite, been more fatigued and less active over the same period. He denies chest discomfort, congestive symptoms. He denies palpitations. He does report some mild lightheadedness on standing but denies any presyncope or syncope. Past Medical History hypertension, TIA, COPD, hyponatremia Past Surgical History denies surgeries Family History Non contributory Social History 1/2 ppd smoker, 3-4 beers nightly, no illicit drugs Current Medications Current Medications Atropine Sulfate 1 mg STK-MED ONCE .ROUTE ; Start 11/07/17 at 11:16; Stop at 11:17; Status DC Aspirin (Jack Aspirin) 325 mg DAILY PO ; Start 11/08/17 at 09:00 Calcium Carbonate/ Glycine (Tums) 500 mg PRN AFTMEALHC PRN PO INDIGESTION Last administered on 11/07/17at 14:45; Start 11/07/17 at 13:45 Glucagon (Glucagen Kit) 2 mg 1X ONCE IV Last administered on 11/07/17at 14:43; Start 11/07/17 at 14:45; Stop 11/07/17 at 14:46; Status DC Active Scripts Active Reported Aspirin 325 Mg Tablet 1 Tab PO DAILY LAST DOSE GIVEN: DATE: TIME: NEXT DOSE DUE: DATE: TIME: Benazepril Hcl 20 Mg Tablet 1 Tab PO DAILY LAST DOSE GIVEN: DATE: TIME: NEXT DOSE DUE: DATE: TIME: Amlodipine Besylate 10 Mg Tablet 1 Tab PO DAILY LAST DOSE GIVEN: DATE: TODAY TIME: AM NEXT DOSE DUE: DATE: TOMORROW TIME: AM Allergies: Coded Allergies: No Known Drug Allergies (Unverified , 03/01/17) Review of System as per HPI General: Alert, Oriented X3, Cooperative, No acute distress HEENT: Atraumatic, EOMI Lungs: Other (coarse rhonchi throughout) Heart: Other (regular rhythm, bradycardic, no gallops, clicks or rubs) Abdomen: Normal bowel sounds, Soft Extremities: Other (weak palpable pulses, trace edema) Neuro: Normal speech, Strength at 5/5 X4 ext Psych/Mental Status: Mental status NL, Mood NL VITALS Vital Signs Date Time Temp Pulse Resp B/P (MAP) Pulse Ox O2 Delivery O2 Flow Rate FiO2 11/07/17 14:07 Nasal Cannula 5.0 11/07/17 14:06 94 11/07/17 13:58 32 18 98/53 (68) Labs Laboratory Tests Test 11/07/17 11:20 White Blood Count 8.8 x10^3/uL (4.0-11.0) Red Blood Count 5.00 x10^6/uL (4.30-5.70) Hemoglobin 15.5 g/dL (13.0-17.5) Hematocrit 45.5 % (39.0-53.0) Mean Corpuscular Volume 91 fL (79-100) Mean Corpuscular Hemoglobin 31 pg (25-35) Mean Corpuscular Hemoglobin Concent 34 g/dL (31-37) Red Cell Distribution Width 14.7 % (11.5-14.5) Platelet Count 116 x10^3/uL (140-400) Neutrophils (%) (Auto) 79 % (31-73) Lymphocytes (%) (Auto) 13 % (24-48) Monocytes (%) (Auto) 6 % (0-9) Eosinophils (%) (Auto) 2 % (0-3) Basophils (%) (Auto) 0 % (0-3) Neutrophils # (Auto) 7.0 x10^3uL (1.8-7.7) Lymphocytes # (Auto) 1.1 x10^3/uL (1.0-4.8) Monocytes # (Auto) 0.6 x10^3/uL (0.0-1.1) Eosinophils # (Auto) 0.2 x10^3/uL (0.0-0.7) Basophils # (Auto) 0.0 x10^3/uL (0.0-0.2) Sodium Level 129 mmol/L (136-145) Potassium Level 4.7 mmol/L (3.5-5.1) Chloride Level 92 mmol/L (98-107) Carbon Dioxide Level 31 mmol/L (21-32) Anion Gap 6 (6-14) Blood Urea Nitrogen 25 mg/dL (8-26) Creatinine 0.7 mg/dL (0.7-1.3) Estimated GFR (Cockcroft-Gault) 109.6 BUN/Creatinine Ratio 36 (6-20) Glucose Level 69 mg/dL (70-99) Calcium Level 8.9 mg/dL (8.5-10.1) Total Bilirubin 0.2 mg/dL (0.2-1.0) Aspartate Amino Transf (AST/SGOT) 48 U/L (15-37) Alanine Aminotransferase (ALT/SGPT) 53 U/L (16-63) Alkaline Phosphatase 104 U/L (46-116) Troponin I Quantitative < 0.017 ng/mL (0-0.055) Total Protein 6.2 g/dL (6.4-8.2) Albumin 2.8 g/dL (3.4-5.0) Albumin/Globulin Ratio 0.8 (1.0-1.7) Thyroid Stimulating Hormone (TSH) 3.454 uIU/mL (0.358-3.740) Images CXR - no acute abn Assessment/Plan 1. Sinus bradycardia - stop beta blockers and cimetidine. Atropine and dopamine prn for symptomatic stephen. Echo in am. Allow for washout of beta blockers and if no improvement consider pacemaker. 2. hypertension- hold antihypertensives for now 3. COPD exacerbation. POC discussed with Dr Santana, suggest transfer to [facility] for monitoring and for availability of vat house laborer for temp pacing placement if necessary. Problems: TAYLER OVIEOD APRN Nov 07, 2017 15:57
[2017-11-07] MEDS ORDERED: IV NORMAL SALINE 500ML 500 ML IV ONE (16:45)
--- NOTE | 2017-11-07 17:33 | EKG ---
[address] [address] Test Date: 2017-11-07 Test Time: 11:25:32 Pat Name: RYAN KELLEY Department: Room: 107 A Gender: M X Ray Tech: MIGUELINA : 1940 Requested By: TAYLER OVIEDO Order Number: [id number] Reading MD: Measurements Intervals [place] Rate: 34 P: 90 DC: 202 QRS: 83 QRSD: 104 T: 62 QT: 566 QTc: 429 Interpretive Statements SINUS BRADYCARDIA QRS(T) CONTOUR ABNORMALITY CONSIDER ANTEROLATERAL MYOCARDIAL DAMAGE ABNORMAL ECG RI6.01 No previous ECG available for comparison
--- NOTE | 2017-11-07 21:32 | SSS ---
ADMIT DATE: 11/07/2017 HISTORY OF PRESENT ILLNESS: The patient is a 77-year-old male patient who was admitted directly from his primary care physician where he was seen this morning with a complaint of being unsteady, staggering, feeling dizzy, but there was no syncope or loss of consciousness. When he was evaluated in the office, he was found to have bradycardia with heart rate in the mid 30s, blood pressure was also borderline with a systolic pressure of 90 and he has had a chest x-ray and some lab work done in the office and was admitted directly for further evaluation and treatment. When I saw him, he denied any chest pain, but stated that his symptoms started about 4 days ago. Did complain of shortness of breath, cough with whitish sputum and is known to have COPD. He has also loss of appetite. PAST MEDICAL HISTORY: Significant for chronic obstructive pulmonary disease, hypertension, TIA and possible benign prostatic hypertrophy. PAST SURGICAL HISTORY: Significant for tonsillectomy and colonoscopy. ALLERGIES: He has no known drug allergies. MEDICATIONS: He is currently on amlodipine 10 mg once a day, benazepril 20 mg once a day, metoprolol succinate 50 mg once a day, cimetidine 200 mg once a day. He is also on aspirin 325 mg once a day. FAMILY HISTORY: He has one half-brother and 2 half sisters. His father of cancer and mother of Alzheimer disease. SOCIAL HISTORY: He is , has 2 daughters. He is current everyday smoker, he smokes half a pack a day, drinks 2-3 beers at night. 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 REVIEW OF SYSTEMS: The patient said that he is known to have cataract and there were plans for him to have cataract surgery this month. Denied any glaucoma or macular degeneration. Denied any earache, tinnitus, or sensorineural deafness. Denied any nosebleeds, stuffy nose, or postnasal drip. Denied any sore throat, sore tongue, toothache, hoarseness of voice or difficulty swallowing. Denied any nausea, vomiting, diarrhea, or constipation. He denied any hematemesis, melena, or hematochezia. Denied any dysuria, frequency, or hematuria. Did complain of nocturia, but sometimes up to 4 times at night. Denied any chest pain. Did complain of shortness of breath, cough, phlegm, or hemoptysis. PHYSICAL EXAMINATION: GENERAL: When I examined him this afternoon, he was resting slightly propped up in bed, in no apparent respiratory distress, somewhat pale, but no jaundice, cyanosis, or thyromegaly. No jugular venous distension. No lower limb edema. His heart rate was down to 28 to 34. His blood pressure was 96/60, temperature was 98, respiratory rate was 18 and oxygen saturation was 90% on 5 liters of oxygen. HEAD, EARS, NOSE AND THROAT: Normocephalic, atraumatic. NECK: Supple. HEART: Showed normal first and second heart sounds. No gallop, rub, or murmur. CHEST: Clear to auscultation. No crepitation or rhonchi. ABDOMEN: Distended, soft, nontender. No guarding or rigidity. No organomegaly. Hernial orifice intact. Bowel sounds normal. NEUROLOGIC: He was awake, alert. All cranial nerves intact. EXTREMITIES: He moves extremities without difficulty. LABORATORY DATA: His lab work showed a white cell count of 8800, hemoglobin 15.5, hematocrit 45, MCV 91, platelet count of 116,000 with normal manual differential. His chemistry showed a serum sodium 129, potassium 4.7, chloride 92, bicarbonate 31, anion gap of 6, BUN 25, creatinine 0.7, estimated GFR was 109 mL per minute. His glucose was 69, calcium was 8.9. Total bilirubin, AST, ALT, alkaline phosphatase were normal. Total protein was 6.2, albumin was 2.8. TSH was 3.45. His EKG showed marked sinus bradycardia with a heart rate that dropped down to 23 beats per minute. IMPRESSION AND PLAN: This is a 77-year-old male patient with a past medical history significant for COPD, hypertension, who came with ataxia and impaired balance, was found to have marked sinus bradycardia and hypotension, most likely due to the effect of antihypertensive medication, particularly beta blockers. We held the beta krish. He was given 2 mg of glucagon and half a liter of normal saline; however, he continues to be hypotensive, bradycardic and in consultation with Dr. Villa, he recommended transfer him to CVICU for close monitoring as he might require a temporary pacemaker until the effect of the beta krish wears off. JIN LOFTON MD DR: Viraj JOB#: [id number] / [id number]
[2017-11-08] MEDS ORDERED: ASPIRIN 325 MG TABLET PO SCH (09:00)
== END 2017-11-07 17:30 | disposition short-term general hospital (02) | DRG 312 ==
LOC: 1 SOUTH 10:28 → ICU 15:30
PROVIDERS: ADMIT Internal Medicine; ATTEND Internal Medicine
DX: I95.2 Hypotension due to drugs (principal); R00.1 Bradycardia, unspecified; J44.1 Chronic obstructive pulmonary disease with (acute) exacerbation; T46.5X5A Adverse effect of other antihypertensive drugs, initial encounter; F17.210 Nicotine dependence, cigarettes, uncomplicated; I10 Essential (primary) hypertension; Z80.9 Family history of malignant neoplasm, unspecified; Z82.0 Family history of epilepsy and other diseases of the nervous system; Z86.73 Personal history of transient ischemic attack (TIA), and cerebral infarction without residual deficits; Y92.89 Other specified places as the place of occurrence of the external cause
CPT/HCPCS: 36415; 71046; 80053; 84443; 84484; 85025; 87040; 93005; 99406; J1265; J1610; J7040